=== PATIENT | male | born 1960 | race Caucasian/White ===

== ENCOUNTER 2018-02-18 20:45 | Emergency (ER) | payer OTHER, MEDICARE ==
[2018-02-18] MEDS ORDERED: ONDANSETRON 4 MG TAB.RAPDIS PO ONE (22:18)
[2018-02-18] MEDS ORDERED: NORMAL SALINE 1000 ML 1,000 ML IV ONE (22:19)
--- NOTE | 2018-02-18 22:21 | ER Document Report ---
ED GI/ - General Chief Complaint: Nausea/Vomiting Stated Complaint: NAUSEA/VOMITING Time Seen by Provider: 02/18/18 22:11 Notes: Patient is a 57 year old male that comes to the ED for chief complaint of abdominal pain, nausea, vomiting, and diarrhea. Symptoms started almost 3 days ago, he states he slept most of 2 days, over the past day he has had multiple episodes of nonbloody diarrhea a couple episodes of nonbloody vomiting. He denies fever or chills. Multiple sick family members. He states that he was doubled over in discomfort in his abdomen prior to arrival and that is why he came in. He states that he had a large amount of flatus multiple times after getting to the room and now he feels fine. He denies any daily medications. Past medical history of non-Hodgkin's lymphoma in 2006, he is cleared still and not on any medications for this, he has had a splenectomy, hernia repair. TRAVEL OUTSIDE OF THE [place] IN LAST 30 DAYS: No - Related Data Allergies/Adverse Reactions: No Known Drug Allergies Allergy (Verified 02/18/18 22:24) Past Medical History - General Information source: Patient - Social History Smoking Status: Never Smoker Frequency of alcohol use: None Drug Abuse: None Lives with: Family Family History: Reviewed & Not Pertinent Malignancy Medical History: Reports Hx Lymphoma Past Surgical History: Reports: Hx Herniorrhaphy, Other - Splenectomy - Immunizations Hx Diphtheria, Pertussis, Tetanus Vaccination: Yes Review of Systems - Review of Systems Constitutional: No symptoms reported EENT: No symptoms reported Cardiovascular: No symptoms reported Respiratory: No symptoms reported Gastrointestinal: See HPI Genitourinary: No symptoms reported Male Genitourinary: No symptoms reported Musculoskeletal: No symptoms reported Skin: No symptoms reported Hematologic/Lymphatic: No symptoms reported Neurological/Psychological: No symptoms reported Physical Exam - Vital signs Vitals: Temp Pulse Resp BP Pulse Ox 97.7 F 83 16 130/75 H 95 02/18/18 21:07 02/18/18 21:07 02/18/18 21:07 02/18/18 21:07 02/18/18 21:07 - Notes Notes: GENERAL: Alert, interacts well. No acute distress. HEAD: Normocephalic, atraumatic. EYES: Pupils equal, round, and reactive to light. Extraocular movements intact. ENT: Oral mucosa dry, tongue midline. NECK: Full range of motion. Supple. Trachea midline. LUNGS: Clear to auscultation bilaterally, no wheezes, rales, or rhonchi. No respiratory distress. HEART: Regular rate and rhythm. No murmur ABDOMEN: Soft, non-tender. Non-distended. Bowel sounds present in all 4 quadrants. EXTREMITIES: Moves all 4 extremities spontaneously. No edema, normal radial and dorsalis pedis pulses bilaterally. No cyanosis. BACK: no cervical, thoracic, lumbar midline tenderness. No saddle anesthesia, normal distal neurovascular exam. NEUROLOGICAL: Alert and oriented x3. Normal speech. [cranial nerves II through XII grossly intact]. PSYCH: Normal affect, normal mood. SKIN: Warm, dry, normal turgor. No rashes or lesions noted. Course - Re-evaluation Re-evalutation: Patient stating that his symptoms resolved before I evaluated him. Soft nontender abdomen. Dry mucous membranes. Patient has not been drinking a lot of fluids. Patient was given IV fluids, Zofran, on reevaluation patient states he feels great. Patient eating and drinking without any difficulty here in the emergency department. CBC shows mild leukocytosis, elevation of eosinophils which is nonspecific. Chemistry is unremarkable. Vital signs are unremarkable. Because of patient's reported diarrhea and splenectomy I discussed with him possibly covering him for Salmonella, however patient declines. He states he is actually much better now, diarrhea has basically resolved, and patient also has multiple sick contacts at home. This is probably viral. Discussed return precautions, patient states understanding and agreement. - Vital Signs Vital signs: Temp Pulse Resp BP Pulse Ox 97.6 F 81 18 107/73 94 02/18/18 23:46 02/18/18 23:46 02/18/18 23:46 02/18/18 23:46 02/18/18 23:46 - Laboratory Result Diagrams: 02/18/18 21:57 02/18/18 21:57 Laboratory results interpreted by me: 02/18/18 02/18/18 21:57 21:57 WBC 10.7 H MCV 102 H MCH 35.8 H Eosinophils % 7.2 H Absolute Eosinophils 0.8 H Chloride 108 H Discharge - Discharge Clinical Impression: Nausea vomiting and diarrhea, Dehydration Condition: Stable Disposition: HOME, SELF-CARE Additional Instructions: Your evaluation, symptoms, and workup are most suggestive of viral illness. Continue to hydrate, take your Pepcid at the house, take Zofran if needed for nausea, start with bland diet and slowly progress. Avoid dairy products for now. Follow-up with primary care. Return if you worsen including increased diarrhea, fever, bloody stools, severe abdominal pain, or any other concerning or worsening symptoms. Prescriptions: Ondansetron [Zofran Odt 4 mg Tablet] 1 - 2 tab PO Q4H PRN #15 tab.rapdis PRN Reason: For Nausea/Vomiting
[2018-02-18 22:32] LABS: ALANINE AMINOTRANSFERASE 40 U/L (21-72); ALBUMIN 3.9 g/dL (3.5-5.0); ALKALINE PHOSPHATASE 92 U/L (38-126); ANION GAP 6 (5-19); ASPARTATE AMINO TRANSFERASE 43 U/L (17-59); BILIRUBIN,DIRECT 0.4 mg/dL (0.0-0.4); BILIRUBIN,TOTAL 0.6 mg/dL (0.2-1.3); BLOOD UREA NITROGEN 20 mg/dL (7-20); CALCIUM 8.7 mg/dL (8.4-10.2); CARBON DIOXIDE 26 mmol/L (22-30); CHLORIDE 108 mmol/L (98-107); GLUCOSE 98 mg/dL (75-110); LIPASE 56.9 U/L (23-300); POTASSIUM 3.8 mmol/L (3.6-5.0); SODIUM 139.9 mmol/L (137-145); TOTAL PROTEIN 6.6 g/dL (6.3-8.2)
[2018-02-18 22:36] LABS: ABSOLUTE BASOPHILS # (AUTO) 0.1 10^3/uL (0.0-0.2); ABSOLUTE EOSINOPHILS # (AUTO) 0.8 10^3/uL (0.0-0.6); ABSOLUTE MONOCYTES (AUTO) 1.1 10^3/uL (0.1-1.4); ABSOLUTE NEUT (AUTO) 5.7 10^3/uL (1.7-8.2); BASOPHILS % (AUTO) 0.6 % (0-2); EOSINOPHILS % (AUTO) 7.2 % (0-6); HEMATOCRIT 44.6 % (37.9-51.0); HEMOGLOBIN 15.7 g/dL (13.5-17.0); LYMPHOCYTES % (AUTO) 28.1 % (13-45); MEAN CORPUSCULAR HEMOGLOBIN 35.8 pg (27.0-33.4); MEAN CORPUSCULAR HGB CONC 35.3 g/dL (32.0-36.0); MEAN CORPUSCULAR VOLUME 102 fl (80-97); MONOCYTES % (AUTO) 10.7 % (3-13); PLATELET COUNT 248 10^3/uL (150-450); RED BLOOD COUNT 4.39 10^6/uL (4.35-5.55); RED CELL DISTRIBUTION WIDTH 13.6 % (11.5-14.0); SEGMENTED NEUTROPHILS % (AUTO) 53.4 % (42-78); TOTAL CELLS COUNTED % (AUTO) 100 %; WHITE BLOOD COUNT 10.7 10^3/uL (4.0-10.5)
[2018-02-18] MEDS ORDERED: ONDANSETRON ODT 4 MG TAB (6 TAB/ER DISP) PO PRN (23:22)
[2018-02-18 23:52] VITALS: BP 107/73
== END 2018-02-18 23:52 | disposition home or self-care (01) ==
LOC: ER 20:45
DX: R11.2 Nausea with vomiting, unspecified (principal); R19.7 Diarrhea, unspecified; E86.0 Dehydration; D72.1 Eosinophilia; Z85.72 Personal history of non-Hodgkin lymphomas; Z90.81 Acquired absence of spleen
CPT/HCPCS: 99284; 96360; 36415; 83690; 85025; 80053; S0119; J7030

== ENCOUNTER → 2018-06-25 | Outpatient (CLI) | payer MEDICARE ==
--- NOTE | 2018-06-26 08:33 | XCELERA REPORT ---
[address] [address] Tel: [phone] Fax: [phone] Lower Extremity Arterial Evaluation Name: CLINTON BOONE Age: 57 yrs Gender: Male : 1960 Patient Status: Outpatient Patient Location: [facility] Study Date: 06/25/2018 02:19 PM Procedure: Ankle brachial indicies performed. Reason For Study: [facility] - [facility] Ordering Physician: PASTORA OCAMPO Performed By: Toro Andres Right Side Arterial Evaluation CAREY in Posterior Tibial:1.34. Triphasic waveform. Left Side Arterial Evaluation CAREY in Posterior Tibial:1.27. Triiphasic waveform. Interpretation Summary Normal CAREY. Suggesting near normal arterial system, within the limitations of this technique. CAREY in right posterior Tibial is on the border of suggesting medial non compliance, by some criteria. : PASTORA OCAMPO > Andrey Ortez
== END ==
LOC: SP 13:55
PROVIDERS: ATTEND Registered Nurse
DX: I73.9 Peripheral vascular disease, unspecified (principal)
CPT/HCPCS: 93922

== ENCOUNTER 2018-12-03 12:14 | Emergency (ER) | payer OTHER, MEDICARE ==
[2018-12-03 12:36] VITALS: BP 146/88
--- NOTE | 2018-12-03 12:53 | ER Document Report ---
ED GI/ - General Chief Complaint: Constipation Stated Complaint: CONSTIPATION Time Seen by Provider: 12/03/18 12:49 Primary Care Provider: PASTORA OCAMPO MANAGER [employer]IND [NURSE PRACTITIONER] - Follow up as needed Mode of Arrival: Ambulatory Information source: Patient Notes: Patient is a 58-year-old male who presents to the emergency department with complaint of constipation. Patient reports he has not had a bowel movement in 2 weeks. He reports that he took [id number] stool softeners as well as suppositories this morning. Denies any nausea, vomiting or fever. Reports long-standing history of constipation. TRAVEL OUTSIDE OF THE [place] IN LAST 30 DAYS: No - Related Data Allergies/Adverse Reactions: No Known Drug Allergies Allergy (Verified 12/03/18 12:15) Past Medical History - General Information source: Patient - Social History Smoking Status: Never Smoker Frequency of alcohol use: None Drug Abuse: None Family History: Reviewed & Not Pertinent Renal/ Medical History: Denies: Hx Peritoneal Dialysis Malignancy Medical History: Reports Hx Lymphoma GI Medical History: Reports: Other - Chronic constipation Past Surgical History: Reports: Hx Herniorrhaphy, Other - Splenectomy - Immunizations Hx Diphtheria, Pertussis, Tetanus Vaccination: Yes Review of Systems - Review of Systems Constitutional: No symptoms reported EENT: No symptoms reported Cardiovascular: No symptoms reported Respiratory: No symptoms reported Gastrointestinal: Constipation Genitourinary: No symptoms reported Male Genitourinary: No symptoms reported Musculoskeletal: No symptoms reported Skin: No symptoms reported Hematologic/Lymphatic: No symptoms reported Neurological/Psychological: No symptoms reported Physical Exam - Vital signs Vitals: Temp Pulse Resp BP Pulse Ox 97.7 F 94 20 146/88 H 95 12/03/18 12:35 12/03/18 12:35 12/03/18 12:35 12/03/18 12:35 12/03/18 12:35 - Notes Notes: PHYSICAL EXAMINATION: GENERAL: Well-appearing, well-nourished and in no acute distress. HEAD: Atraumatic, normocephalic. EYES: Pupils equal round and reactive to light, extraocular movements intact, sclera anicteric, conjunctiva are normal. ENT: Nares patent, oropharynx clear without exudates. Moist mucous membranes. NECK: Normal range of motion, supple without lymphadenopathy LUNGS: Breath sounds clear to auscultation bilaterally and equal. No wheezes rales or rhonchi. HEART: Regular rate and rhythm without murmurs ABDOMEN: Soft, nontender, nondistended abdomen. No guarding, no rebound. No masses appreciated. Musculoskeletal: Normal range of motion, no pitting or edema. No cyanosis. NEUROLOGICAL: Cranial nerves grossly intact. Normal speech, normal gait. Normal sensory, motor exams PSYCH: Normal mood, normal affect. SKIN: Warm, Dry, normal turgor, no rashes or lesions noted. Course - Re-evaluation Re-evalutation: 12/03/18 12:54 Patient reports he just had a very large bowel movement in the bathroom while waiting. Patient denies any abdominal pain, states he is ready to be discharged home. Physical examination is unremarkable. - Vital Signs Vital signs: Temp Pulse Resp BP Pulse Ox 97.7 F 94 20 146/88 H 95 12/03/18 12:35 12/03/18 12:35 12/03/18 12:35 12/03/18 12:35 12/03/18 12:35 Discharge - Discharge Clinical Impression: Constipation Qualifiers: Constipation type: unspecified constipation type Qualified Code(s): K59.00 - Constipation, unspecified Condition: Stable Disposition: HOME, SELF-CARE Additional Instructions: Constipation Constipation is a common problem. It is especially likely as you get older. Constipation is a common cause of abdominal pain, but sometimes causes no symptoms at all. Causes of constipation include certain medications, dehydration, diets, inactivity, and low-fiber intake. Rarely, it can be a symptom of underlying disease. The physician has evaluated you for this. Avoid constipation by eating a diet high in fiber, fruits, and vegetables. Drink plenty of liquids. Get regular exercise. If possible, avoid constipating medicines like narcotic pain medication. Some vitamin tablets can cause constipation. Stool softeners may be needed for difficult cases. An excellent stool softener is Konsyl which is available at [employer], and [employer] drug store. Just add a teaspoon to a glass of pineapple or orange juice daily or twice a day if needed. Laxatives are useful for occasional constipation. You should use them only when necessary. Too-frequent use can make your bowels dependent on them. Some over the counter laxatives available without prescription are: Milk of Magnesia, 1-2 tablespoons twice a day Dulcolax, 5 mg pill or 10 mg suppository. Citrate of Magnesia, 4-5 ounces a day for a day or two For acute constipation, Fleet's Enemas and Dulcolax suppositories are helpful. Chronic, jail use of laxatives or enemas is not a good idea. Your bowel may become dependant on them. You do not need to have a bowel movement every day. Many people do fine with a bowel movement every three or four days. You should call your doctor or return for re-evaluation if you pass blood in the stool, or if you develop fever or increasing abdominal pain. Referrals: PASTORA OCAMPO NP [NURSE PRACTITIONER] - Follow up as needed
== END 2018-12-03 12:58 | disposition home or self-care (01) ==
LOC: ER 12:14
DX: K59.00 Constipation, unspecified (principal)
CPT/HCPCS: 99283